=== PATIENT | female | born 1950 | race African-American/Black ===

== ENCOUNTER 2018-07-22 22:20 | Emergency (ER) | payer MEDICARE, OTHER ==
[~2018-07-22] VITALS: Ht 162.6 cm; Wt 85.7 kg
--- NOTE | 2018-07-22 22:40 | NUR ---
BIBRA 97% AOX3. FROM LONG TERM, COMPLAINING OF PAIN ON BILATERAL LEGS. RECHECKED BS 404 MG/DL. DR HERNANDEZ AT BEDSIDE ASSESSED THE PATIENT ANS EXPLAINED POC.
[2018-07-22] MEDS ORDERED: IV NS 0.9% 1,000 ML BAG IV ONE (23:00)
[2018-07-22 23:16] LABS: BASOPHILS # (AUTO) 0.1 /CMM (0.0-0.2); BASOPHILS % (AUTO) 1.1 % (0.0-2.0); HEMATOCRIT 44 % (33-45); HEMOGLOBIN 14.4 g/dL (11.5-14.8); LYMPHOCYTES # (AUTO) 2.7 /CMM (0.8-4.8); LYMPHOCYTES % (AUTO) 40.5 % (20.0-44.0); MEAN CORPUSCULAR HGB CONC 33 g/dl (31.0-36.0); MEAN CORPUSCULAR VOLUME 72 fL (82-100); MONOCYTES # (AUTO) 0.5 /CMM (0.1-1.30); NEUTROPHILS # (AUTO) 3.3 /CMM (1.8-8.9); NEUTROPHILS % (AUTO) 49.4 % (43.0-81.0); PLATELET COUNT (AUTO) 251 /CMM (150-450); RED BLOOD CELL COUNT(AUTO) 6.14 MIL/uL (4.0-5.2); WHITE BLOOD COUNT (AUTO) 6.6 K/uL (4.3-11.0)
[2018-07-22 23:29] LABS: CREATININE 1.1 mg/dL (0.6-1.3); POTASSIUM 4.3 mmol/L (3.5-5.1)
--- NOTE | 2018-07-22 23:55 | NUR ---
PT IS A HARD STICK 4 NURSES CHECKED AND TRIED TO PLACED IV LINE, UNABLE TO DO SO. DR. HERNANDEZ MADE AWARE WITH ORDER FOR VBG AND HOLD IVF FOR NOW AND WILL WAIT FOR VBG RESULT AND OTHER LABS. Addendum: 07/22/18 at 2359 by FABIAN WAITING FOR ABG RESULT NOT VBG RESULT.
[2018-07-23 00:05] LABS: ABG BASE EXCESS 1.5 mmol/L; ABG OXYGEN SATURATION 94.5 % (92.0-98.5); ABG PH 7.436 (7.350-7.450); ABG PO2 70.2 mmHg (75.0-100.0); AaDO2 32.8 mmHg; COHb 2.4 % (0.5-1.5); MetHb 0.5 % (0.0-1.5); O2Hb 91.8 % (94.0-97.0); SITE, ABG Right Radial; VENT MODE, BG room air
--- NOTE | 2018-07-23 00:10 | NUR ---
RT PERFORMED ABG PER HERNANDEZ VERBAL ORDER.
[2018-07-23] MEDS ORDERED: INSULIN REGULAR, HUMAN 100 UNIT/ML 10 ML VIAL ONE (00:29)
[2018-07-23] MEDS ORDERED: INSULIN REGULAR, HUMAN 100 UNIT/ML 10 ML VIAL SQ ONE (00:30)
[2018-07-23 00:43] VITALS: BP 156/98
== END 2018-07-23 00:44 | disposition home or self-care (01) ==
LOC: ER 22:22
DX: E11.65 Type 2 diabetes mellitus with hyperglycemia (principal); I10 Essential (primary) hypertension; F17.210 Nicotine dependence, cigarettes, uncomplicated; R94.31 Abnormal electrocardiogram [ECG] [EKG]; Z90.710 Acquired absence of both cervix and uterus; Z88.5 Allergy status to narcotic agent
CPT/HCPCS: 36415; 36600; 80048-TC; 82962-TC; 85025-TC; J1815; J7030

== ENCOUNTER 2018-07-23 09:08 | Emergency (ER) | payer MEDICARE, OTHER ==
[~2018-07-23] VITALS: Ht 162.6 cm; Wt 85.3 kg
[2018-07-23 09:08] VITALS: BP 131/68
[2018-07-23] MEDS ORDERED: KETOROLAC TROMETHAMINE INJ 30 MG/ML VIAL IM ONE (10:30)
[2018-07-23] MEDS ORDERED: KETOROLAC TROMETHAMINE 15 MG/ML VIAL ONE (10:37)
--- NOTE | 2018-07-23 10:46 | NUR ---
SEEN AND EVALUATED BY DR RICK. OK TO BOOK. D/C IN STABLE CONDITION.
== END 2018-07-23 10:47 ==
LOC: ER 09:10
DX: M19.90 Unspecified osteoarthritis, unspecified site (principal); I10 Essential (primary) hypertension; E11.9 Type 2 diabetes mellitus without complications; Z90.710 Acquired absence of both cervix and uterus; Z88.6 Allergy status to analgesic agent; Z60.2 Problems related to living alone
CPT/HCPCS: 96372; 99283; A4606; J1885; Z7610